=== PATIENT | female | born 1985 | race Caucasian/White ===

== ENCOUNTER 2017-09-21 14:47 | Observation (INO) ==
[2017-09-21] MEDS ORDERED: Lactated Ringers-OB Dept 1,000 ML PRIMARY IV SCH (16:30)
[2017-09-21 16:39] LABS: Hematocrit [HCT] 40.4 % (37.0-47.0); Hemoglobin [HGB] 13.3 g/dL (12.0-16.0); MEAN CORPUSCULAR HEMOGLOBIN 29.9 PG (27-31); MEAN CORPUSCULAR HGB CONC 32.9 g/dL (33-37); MEAN CORPUSCULAR VOLUME 90.8 FL (81-99); MEAN PLATELET VOLUME 10.4 FL (7.4-12.2); RED BLOOD COUNT 4.45 10^6/uL (4.20-5.40)
[2017-09-21 16:56] LABS: BLOOD UREA NITROGEN 8 mg/dL (7-22); SERUM ALBUMIN 3.6 g/dL (3.5-4.8); Uric Acid 4.3 mg/dl (2.5-6.2)
[2017-09-21] MEDS ORDERED: OMEPRAZOLE 20 MG CAPSULE PO ONE (17:12)
[2017-09-21] MEDS ORDERED: FAMOTIDINE 20 MG/2 ML VIAL IVP PRN ×2 (17:33)
[2017-09-21] MEDS ORDERED: ONDANSETRON 4 MG/2 ML VIAL IVP PRN (17:33)
[2017-09-21] MEDS ORDERED: fentaNYL Inj 100 MCG/2 ML VIAL IV PRN (17:33)
[2017-09-21] MEDS ORDERED: LIDOCAINE HCL 2 % 10 ML JELLY URO-JECT TOPICAL PRN (17:33)
[2017-09-21] MEDS ORDERED: Metoclopramide Inj 10 MG/2 ML VIAL IV PRN (17:33)
[2017-09-21] MEDS ORDERED: diphenhydrAMINE 50 MG/1 ML VIAL IVP PRN (17:33)
[2017-09-21] MEDS ORDERED: TERBUTALINE SULFATE 1 MG/1 ML SDV SUBCUT PRN (17:33)
[2017-09-21] MEDS ORDERED: Nalbuphine Inj 20 MG/ML Ampule IVP PRN (17:33)
[2017-09-21] MEDS ORDERED: CefOXitin Inj 2 GM in Sodium Chloride 0.9% 100 ML IV PRN (17:33)
[2017-09-21] MEDS ORDERED: CITRIC ACID/SODIUM CITRATE 30 ML CUP PO PRN (17:33)
[2017-09-21] MEDS ORDERED: Carboprost Inj 250 MCG/ML AMP IM PRN (17:33)
[2017-09-21] MEDS ORDERED: LIDOCAINE W/ SODIUM BICARB 0.5 ML SYR SUBD PRN (17:33)
[2017-09-21] MEDS ORDERED: OXYTOCIN 10 UNIT/1 ML IM PRN (17:33)
[2017-09-21] MEDS ORDERED: Lidocaine 1% 10 MG/ML - 20 ML VIAL SUBCUT PRN (17:33)
[2017-09-21] MEDS ORDERED: Phenylephrine Inj 50 MCG in Normal Saline Flush 0.5 ML IVP PRN (17:33)
[2017-09-21] MEDS ORDERED: METHYLERGONOVINE MALEATE 0.2 MG/1 ML VIAL IM PRN (17:33)
[2017-09-21] MEDS ORDERED: BUTORPHANOL TARTRATE 2 MG/1 ML VIAL IVP PRN (17:33)
[2017-09-21] MEDS ORDERED: Naloxone Inj 0.01 MG in Normal Saline Flush 1 ML IVP PRN (17:33)
[2017-09-21] MEDS ORDERED: ePHEDrine Inj 5 MG in Normal Saline Flush 1 ML IVP PRN (17:33)
[2017-09-21] MEDS ORDERED: NALOXONE 0.4 MG/1 ML VIAL IVP PRN (17:33)
[2017-09-21] MEDS ORDERED: MISOPROSTOL 200 MCG TABLET RECTAL PRN (17:33)
[2017-09-21] MEDS ORDERED: CALCIUM CARBONATE 500 MG (TUMS) CHEWABLE TABLET PO PRN (17:33)
[2017-09-21] MEDS ORDERED: Oxytocin 20 Units + LR 20 UNIT/1,000 ML BAG IV SCH (17:45)
--- NOTE | 2017-09-21 18:09 | OB.PROGRES ---
Interval History: 32 yo at 36 2/7 weeks gestation who was seen in clinic today for routine followup. She had had some irregular contractions over the last few days, but timed her contractions as q5 minutes in clinic and was sent to L&D for monitoring. She has continued to contract q2-5 minutes since presentation to L& D and notes increasing discomfort. GBS was collected in clinic, cephalic on bedside u/s. OBHx - 01/08/12 delivered vaginally at 35 5/7 weeks gestation in [place] with Dr. Rucker - 6lb7oz male. Mediolateral episiotomy, he did require assisted ventilations and O2 for a short time and required bili lights. complicated by threatened labor at 33 weeks, spent a week in the hospital on Mag then went home on procardia. PPROM'd at 35 weeks. She received IM progesterone weekly this . Had an abnormal 1 hour OGTT but normal 3 hour. Anatomy scan notable for choroid plexus cyst and low laying placenta, repeat showed resolution of both. [employer] hx: menarche 11 yo, regular menses, usually lasts approx 3-6 days No h/o STIs. Negative pap in April PMH: chronic HAs. GERD PSH: appy, T&A, Lt and R knee arthroscopy, hernia repair FH: Mo - HTN, prediabetes; Father - HLD SH: , never smoker, no etoh or illicit drug use. 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 Objective - Cervical Exam Cervical Exam: 3-4 outer os 2-3 inner os/60/-1 per RN [place]: q2-4 mins Heart Rate: baseline 130, mod variability, +accels, -decels Heart Rate Interpretation Category: Category I - Labs CBC and BMP: 09/21/17 15:10 09/21/17 15:10 - Vital Signs Last Taken Vital Signs: Vital Signs - Last Taken Temperature 98.4 F 09/21/17 15:33 Pulse Rate 96 09/21/17 15:33 Respiratory Rate 16 09/21/17 15:33 Blood Pressure 132/85 09/21/17 15:33 Pulse Ox 98 09/21/17 15:33 Assessment and Plan - Patient Problems (1) labor Current Visit: Yes Status: Acute Code(s): O60.00 - labor without delivery, unspecified trimester Support Text: 32 yo at 36 2/7 weeks gestation with regular contractions. -Admit with expectant management -GBS collected, pending. Given <37 weeks will start PCN G. -Will want an epidural -Rh positive
[2017-09-21] MEDS ORDERED: diphenhydrAMINE 25 MG CAPSULE PO PRN (20:54)
[2017-09-21] MEDS ORDERED: Zolpidem Tab 5 MG TAB PO PRN (20:56)
[2017-09-21] MEDS: Lactated Ringers-OB Dept 1,000 ML PRIMARY IV SCH (22:32)
--- NOTE | 2017-09-22 07:55 | OB.PROGRES ---
Interval History: Patient is tired, states she didn't sleep much overnight. Contractions slowed overnight but has had some more painful contractions this morning. Hungry. Denies EUBANKS, [place], RUQ pain. Objective - Cervical Exam Cervical Exam: unchanged overnight [place]: q4-8 mins Heart Rate: baseline 130, moderate variability, accels, no decels Heart Rate Interpretation Category: Category I - Labs CBC and BMP: 09/21/17 15:10 09/21/17 15:10 - Vital Signs Last Taken Vital Signs: Vital Signs - Last Taken Temperature 98.1 F 09/22/17 06:45 Pulse Rate 80 09/22/17 07:00 Respiratory Rate 17 09/22/17 06:45 Blood Pressure 117/74 09/22/17 06:45 Pulse Ox 98 09/22/17 07:00 Assessment and Plan - Patient Problems (1) labor Status: Acute Code(s): O60.00 - labor without delivery, unspecified trimester Support Text: 32 yo at 36 3/7 weeks gestation admitted last night thought to be in labor given regular, painful contractions. She ended up spacing out her contractions and has not had any cervical change. We discussed options of staying for continued monitoring vs going to [facility] across the street vs going home in [place] to get some rest. Patient would like to go home to be more comfortable. We also discussed proceeding with IM mariana to help with lung maturity. We did not give it yesterday thinking that delivery was imminent. At this point though, she may continue in latent labor long enough that the celestone would be helpful. Will give this morning, let her eat breakfast and likely d/c to home unless something changes. Patient to return tomorrow morning for NST, second celestone injection. Strict return precautions discussed, including signs of labor, signs of preeclampsia. Addendum - After breakfast patient decided she wasn't comfortable going home so decision made to continue monitoring through the day. Contractions slowed and by early afternoon patient decided she was most comfortable with return to home in [place]. F/u tomorrow for celestone injection, NST and KASIE.
[2017-09-22] MEDS ORDERED: BETAMET ACET/BETAMET NA PH 6 MG/1 ML - 5 ML IM SCH (08:00)
[2017-09-22] MEDS: Lactated Ringers-OB Dept 1,000 ML PRIMARY IV SCH (09:57)
[2017-09-22 12:49] VITALS: O2SAT 97
[2017-09-22 12:55] VITALS: BP 114/72; RESP 18; TEMP 97.9
== END 2017-09-22 13:45 | disposition home or self-care (01) ==
LOC: MOB LAB 14:47 → OBIP 14:47 → MERGE 17:00 → UNMERGE 17:00 → OBIP 17:44 → UNDODISIN 09-22 13:45
PROVIDERS: ADMIT Student in an Organized Health Care Education/Training Program; ATTEND Student in an Organized Health Care Education/Training Program

== ENCOUNTER 2017-10-11 13:19 | Inpatient (IN) ==
[2017-10-11] MEDS ORDERED: CITRIC ACID/SODIUM CITRATE 30 ML CUP PO PRN (15:52)
[2017-10-11] MEDS ORDERED: OXYTOCIN 10 UNIT/1 ML IM PRN (15:52)
[2017-10-11] MEDS ORDERED: FAMOTIDINE 20 MG/2 ML VIAL IVP PRN ×2 (15:52)
[2017-10-11] MEDS ORDERED: Carboprost Inj 250 MCG/ML AMP IM PRN (15:52)
[2017-10-11] MEDS ORDERED: METHYLERGONOVINE MALEATE 0.2 MG/1 ML VIAL IM PRN (15:52)
[2017-10-11] MEDS ORDERED: fentaNYL Inj 100 MCG/2 ML VIAL IV PRN (15:52)
[2017-10-11] MEDS ORDERED: CefOXitin Inj 2 GM in Sodium Chloride 0.9% 100 ML IV PRN (15:52)
[2017-10-11] MEDS ORDERED: ONDANSETRON 4 MG/2 ML VIAL IVP PRN (15:52)
[2017-10-11] MEDS ORDERED: NALOXONE 0.4 MG/1 ML VIAL IVP PRN (15:52)
[2017-10-11] MEDS ORDERED: CALCIUM CARBONATE 500 MG (TUMS) CHEWABLE TABLET PO PRN (15:52)
[2017-10-11] MEDS ORDERED: Lidocaine 1% 10 MG/ML - 20 ML VIAL SUBCUT PRN (15:52)
[2017-10-11] MEDS ORDERED: LIDOCAINE W/ SODIUM BICARB 0.5 ML SYR SUBD PRN (15:52)
[2017-10-11] MEDS ORDERED: MISOPROSTOL 200 MCG TABLET RECTAL PRN (15:52)
[2017-10-11] MEDS ORDERED: Zolpidem Tab 5 MG TAB PO PRN (15:52)
[2017-10-11] MEDS ORDERED: diphenhydrAMINE 50 MG/1 ML VIAL IVP PRN (15:52)
[2017-10-11] MEDS ORDERED: ePHEDrine Inj 5 MG in Normal Saline Flush 1 ML IVP PRN (15:52)
[2017-10-11] MEDS ORDERED: BUTORPHANOL TARTRATE 2 MG/1 ML VIAL IVP PRN (15:52)
[2017-10-11] MEDS ORDERED: Misoprostol Tab 100 MCG TAB VAGINAL PRN (15:52)
[2017-10-11] MEDS ORDERED: Phenylephrine Inj 50 MCG in Normal Saline Flush 0.5 ML IVP PRN (15:52)
[2017-10-11] MEDS ORDERED: Nalbuphine Inj 20 MG/ML Ampule IVP PRN (15:52)
[2017-10-11] MEDS ORDERED: TERBUTALINE SULFATE 1 MG/1 ML SDV SUBCUT PRN (15:52)
[2017-10-11] MEDS ORDERED: Naloxone Inj 0.01 MG in Normal Saline Flush 1 ML IVP PRN (15:52)
[2017-10-11] MEDS ORDERED: LIDOCAINE HCL 2 % 10 ML JELLY URO-JECT TOPICAL PRN (15:52)
[2017-10-11] MEDS ORDERED: Metoclopramide Inj 10 MG/2 ML VIAL IV PRN (15:52)
[2017-10-11] MEDS ORDERED: Oxytocin 20 Units + LR 20 UNIT/1,000 ML BAG IV SCH ×2 (16:00)
[2017-10-11 16:17] LABS: Hematocrit [HCT] 39.7 % (37.0-47.0); Hemoglobin [HGB] 13.5 g/dL (12.0-16.0); MEAN CORPUSCULAR HEMOGLOBIN 30.3 PG (27-31); MEAN CORPUSCULAR VOLUME 89.2 FL (81-99); MEAN PLATELET VOLUME 10.6 FL (7.4-12.2); RED BLOOD COUNT 4.45 10^6/uL (4.20-5.40)
[2017-10-11] MEDS: Lactated Ringers-OB Dept 1,000 ML PRIMARY IV SCH ×2 (16:39→23:34)
[2017-10-11] MEDS ORDERED: ACETAMINOPHEN 500 MG TABLET PO PRN (19:08)
[2017-10-11] MEDS ORDERED: ePHEDrine Inj 50 MG/ML AMP ONE (22:24)
[2017-10-11] MEDS ORDERED: Fent/Bupiv 2mcg/0.0625% Epid 250 ML ONE (22:36)
--- NOTE | 2017-10-11 23:07 | CRNA.PROGR ---
Anesthesia Time - - Start date: 10/11/17 - Procedure/Recovery Time Anesthesia : Time In: 10:40 - Other Weight: 90.718 kg Height: 5 ft 4 in Body Mass Index (BMI): 34.3 Physical Status: P2 Anesthesia Type: Epidural Obstetrics: Planned vaginal delivery w/ neuraxial labor anesthesia/analog
--- NOTE | 2017-10-11 23:08 | CRNA.PROCE ---
Central Neuraxis Block Placemt - - Safety Measures: Time Out Taken - - Type of Block: Epidural Reason for Block: Analgesia Moniters Used During Block: SPO2, NIBP Positioning: Sitting Skin Prep Used: ChloroPrep Draped: Yes Skin Infiltration - Enter Amount Used in Comment Field: 1% Xylocaine (mL): Yes ( skin wheal) Spinal Needle Used: 18 Hustead 80 mm Local Anesthetic - Enter Amount Used in Comment Field: 1.5 % Xylocaine with Epinephrine 1:200,000 (mL): Yes (5ml test dose) Number of Centimeters Catheter Threaded: 4 Bioclusive Dressing Applied: Yes Anesthesia Time - Other Weight: 90.718 kg Height: 5 ft 4 in Body Mass Index (BMI): 34.3
[2017-10-11] MEDS ORDERED: fentaNYL 2 MCG/BUPIVACAINE 0.0625%/NS 0.9% 250 ML BAG EPIDURAL SCH (23:15)
[2017-10-12] MEDS ORDERED: OMEPRAZOLE 20 MG CAPSULE PO ONE (06:49)
--- NOTE | 2017-10-12 06:53 | OB.PROGRES ---
Interval History: 32 yo at 39 2/7 weeks gestation by first trimester u/s admitted yesterday afternoon for elective IOL. She was observed overnight at 36 weeks gestation as she contracted regularly and was thought to be in active labor. She did receive a course of steroids, but ended up being discharged as her cervix never changed. She has continued to contract intermittently since that time. OBHx - 01/08/12 delivered vaginally at 35 5/7 weeks gestation in [place] with Dr. Rucker - 6lb7oz male. Mediolateral episiotomy, he did require assisted ventilations and O2 for a short time and required phototherapy. complicated by threatened labor at 33 weeks, spent a week in the hospital on Mag then went home on procardia. PPROM'd at 35 weeks. She received IM progesterone weekly this . Had an abnormal 1 hour OGTT but normal 3 hour. Anatomy scan notable for choroid plexus cyst and low laying placenta, repeat showed resolution of both. Overnight observation for regular contractions, received steroids at 36 weeks. [employer] hx: menarche 11 yo, regular menses, usually lasts approx 3-6 days No h/o STIs. Negative pap in April PMH: chronic HAs. GERD PSH: appy, T&A, Lt and R knee arthroscopy, hernia repair FH: Mo - HTN, prediabetes; Father - HLD SH: , never smoker, no etoh or illicit drug use. 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 Objective - Cervical Exam Cervical Exam: 4-5/60/-3 per RN, head was not palpable [place]: q2-5 mins Heart Rate: baseline 130, moderate variability, accels, no decels Heart Rate Interpretation Category: Category I - Labs CBC and BMP: 10/11/17 15:30 - Vital Signs Last Taken Vital Signs: Vital Signs - Last Taken Temperature 98.1 F 10/12/17 04:45 Pulse Rate 79 10/12/17 06:15 Respiratory Rate 16 10/12/17 06:00 Blood Pressure 128/78 10/12/17 06:15 Pulse Ox 96 10/12/17 06:15 - Additional Details Additional Details: u/s - KASIE 15.3, vertex but to the R a bit Assessment and Plan - Patient Problems (1) Encounter for induction of labor Current Visit: Yes Status: Acute Code(s): Z34.90 - Encounter for supervision of normal , unspecified, unspecified trimester Support Text: 32 yo at 39 2/7 weeks gestation admitted for elective IOL. She was on pitocin 4MU through the night. At 530/545 when patient was checked, the head was no longer palpable, had been ballotable since arrival. U/s showed the infant was still vertex, head was off to the R a bit, KASIE 15.3. Pitocin was turned off. With the OR crew present and FRANCI Vogt present, I consented the patient for AROM. Dr. Schroeder was able to hold the head down while I AROM'd clear fluid. The Head did engage but was still quite high. GBS negative Continue close observation
--- NOTE | 2017-10-12 07:10 | DI ---
LIMITED OBSTETRICAL ULTRASOUND FOR LIE AND KASIE, 10/12/2017 5:54 AM: Clinical History: Unknown lie. Previous Exam: 09/24/2015. EDC Based On Early OB Ultrasound: 10/16/2017. Scans are obtained in all four quadrants for an amnionic fluid index measurement. The KASIE is 15.3 cm. The heart rate is 140 beats per minute. The fetus is in vertex presentation. The placenta is f undus and grade 1. Readin. Amnionic fluid index is 15.3 cm. 2. The fetus is in vertex presentation.
[2017-10-12] MEDS: Lactated Ringers-OB Dept 1,000 ML PRIMARY IV SCH ×2 (11:17→19:04)
--- NOTE | 2017-10-12 16:27 | OB.DEL.SUM ---
Delivery Note Delivery Summary: 32 yo G2 now P2 was admitted yesterday afternoon for elective IOL. Pt with a h/ o labor, completed IM pregesterone through 36 weeks gestation. She had threatened labor at 36 weeks with regular contractions, was given steroids, observed overnight and ultimately never made cervical change. She has continued to contract intermittently. Upon arrival her cervix was 3/60/-2, she was started on pitocin for induction. Upon arrival the head was not well engaged, quite ballotable. Early this morning the nurses could no longer palpate the head. U/s revealed that baby was still vertex, just off to the patient's R. With the OR crew available, I AROM'd the patient while Dr. Schroeder held the 's head lower in the pelvis. The patient then progressed to complete with pitocin augmentation. She did have an epidural for pain control. She delivered a TAGA female via normal vaginal delivery in TIFFANIE position. The head restituted to LOT. The anterior shoulder delivery was delayed approximately 30 seconds and did require Cintia. The posterior shoulder then delivered with a compound hand. was placed on mom's abdomen. Cord clamping was delayed approx 30-45 seconds, it was then doubly clamped and cut by the RN. Her placenta delivered spontaneously, intact, with 3- vessel cord approx 15 minutes later. The vagina and cervix were inspected and she was noted to have a 2nd degree perineal laceration that was repaired with 3- 0 vicryl rapide in standard fashion. EBL was 400 cc. Mom and baby tolerated delivery well. Apgars 9,9. - Patient Problems (1) Encounter for induction of labor Status: Acute Code(s): Z34.90 - Encounter for supervision of normal , unspecified, unspecified trimester
[2017-10-12] MEDS ORDERED: LIDOCAINE HCL 2 % 10 ML JELLY URO-JECT TOPICAL PRN (16:54)
[2017-10-12] MEDS ORDERED: diphenhydrAMINE 25 MG CAPSULE PO PRN (16:54)
[2017-10-12] MEDS ORDERED: Nalbuphine Inj 20 MG/ML Ampule IVP PRN (16:54)
[2017-10-12] MEDS ORDERED: HYDROcodone-APAP 5 MG -325 MG TABLET PO PRN (16:54)
[2017-10-12] MEDS ORDERED: Ondansetron ODT Tab 4 MG TAB PO PRN (16:54)
[2017-10-12] MEDS ORDERED: CALCIUM CARBONATE 500 MG (TUMS) CHEWABLE TABLET PO PRN (16:54)
[2017-10-12] MEDS ORDERED: GLYCERIN/WITCH HAZEL 1 BOX TOPICAL PRN (16:54)
[2017-10-12] MEDS ORDERED: ACETAMINOPHEN 325 MG TABLET PO PRN (16:54)
[2017-10-12] MEDS ORDERED: ONDANSETRON 4 MG/2 ML VIAL IVP PRN (16:54)
[2017-10-12] MEDS ORDERED: BENZOCAINE/MENTHOL SPRAY 56 GM BOTTLE TOPICAL PRN (16:54)
[2017-10-12] MEDS ORDERED: LANOLIN HPA 40 GM TUBE TOPICAL PRN (16:54)
[2017-10-12] MEDS ORDERED: Oxytocin 20 Units + LR 20 UNIT/1,000 ML BAG IV SCH (16:54)
[2017-10-12] MEDS ORDERED: diphenhydrAMINE 50 MG/1 ML VIAL IVP PRN (16:54)
[2017-10-12] MEDS: IBUPROFEN 800 MG TABLET PO PRN (21:31)
[2017-10-12] MEDS: DOCUSATE 100 MG CAPSULE PO SCH (21:32)
[2017-10-13] MEDS: D5-LR 1,000 ML PRIMARY IV SCH ×2 (00:04→15:30)
[2017-10-13 05:26] LABS: Hematocrit [HCT] 32.5 % (37.0-47.0); Hemoglobin [HGB] 10.2 g/dL (12.0-16.0); MEAN CORPUSCULAR HEMOGLOBIN 28.8 PG (27-31); MEAN CORPUSCULAR HGB CONC 31.4 g/dL (33-37); MEAN CORPUSCULAR VOLUME 91.8 FL (81-99); MEAN PLATELET VOLUME 10.9 FL (7.4-12.2); RED BLOOD COUNT 3.54 10^6/uL (4.20-5.40)
[2017-10-13] MEDS ORDERED: CITRIC ACID/SODIUM CITRATE 30 ML CUP PO ONE (06:04)
[2017-10-13] MEDS ORDERED: FAMOTIDINE 20 MG/2 ML VIAL IVP ONE (06:04)
[2017-10-13] MEDS ORDERED: Metoclopramide Inj 10 MG/2 ML VIAL IVP ONE (06:04)
[2017-10-13] MEDS ORDERED: MIDAZOLAM 5 MG/1 ML ONE (07:21)
[2017-10-13] MEDS ORDERED: LIDOCAINE MPF 2% - 5 ML (20 MG/1 ML) ONE (07:21)
[2017-10-13] MEDS ORDERED: KETAMINE 100 MG/1 ML - 5 ML ONE (07:21)
[2017-10-13] MEDS ORDERED: fentaNYL Inj 100 MCG/2 ML VIAL ONE (07:21)
[2017-10-13] MEDS ORDERED: Sodium Chloride 0.9% vial 10 ML ONE (07:21)
[2017-10-13] MEDS ORDERED: DEXAMETHASONE PF 10 MG/1 ML VIAL ONE (07:22)
[2017-10-13] MEDS ORDERED: PROPOFOL 10 MG/1 ML (200 MG/20 ML) VIAL IV ONE (07:23)
[2017-10-13] MEDS: Lactated Ringers 1,000 ML PRIMARY IV SCH ×2 (07:25→15:30)
[2017-10-13] MEDS ORDERED: BUPIVACAINE 0.25% W/ EPI - 10 ML VIAL ONE (07:39)
--- NOTE | 2017-10-13 07:46 | CRNA.PROGR ---
Anesthesia Time - - Start date: 10/13/17 End date: 10/13/17 - Procedure/Recovery Time Anesthesia : Time In: 07:53 Anesthesia : Time Out: 08:49 Anesthesia : Total Time: 56 - Total Anesthesia Time Total Anesthesia Time (minutes): 56 - Other Weight: 90.718 kg Height: 5 ft 4 in Body Mass Index (BMI): 34.3 Physical Status: P2 Anesthesia Type: General Anesthesia : ET
[2017-10-13] MEDS ORDERED: ATROPINE SULFATE 0.4 MG/1 ML VIAL IVP PRN (07:47)
[2017-10-13] MEDS ORDERED: fentaNYL Inj 100 MCG/2 ML VIAL IVP PRN (07:47)
[2017-10-13] MEDS ORDERED: ONDANSETRON 4 MG/2 ML VIAL IVP PRN (07:47)
[2017-10-13] MEDS ORDERED: LIDOCAINE W/ SODIUM BICARB 0.5 ML SYR SUBD PRN (07:47)
[2017-10-13] MEDS ORDERED: HYDROmorphone 2 MG/1 ML IVP PRN (07:47)
--- NOTE | 2017-10-13 07:47 | CRNA.PROGR ---
Anesthesia Recovery Phase I - Post Anesthesia Evaluation Patient's Condition on Arrival in Phase I: Stable Patient's Condition on Arrival in Phase II: Stable Pain Level: 4 (medicated-resolved)
[2017-10-13] MEDS ORDERED: Lactated Ringers 1,000 ML PRIMARY IV SCH (08:00)
[2017-10-13] MEDS ORDERED: KETOROLAC 30 MG/1 ML VIAL ONE (08:21)
--- NOTE | 2017-10-13 08:36 | OB.OP.NOTE ---
Operative Report Surgeon: Ilia Car Checker: Irvin Gonzalez MD Anesthesia Type: General Anesthesia Provider: Mone Kumar CRNA Surgery Date: 10/13/17 Preoperative Diagnosis: Desires Permanent Sterilization Postoperative Diagnosis: Same Procedure: PPTL via Bilateral Salpingectomy Estimated Blood Loss (mL): 0 Fluids: 800 ml Complications: None Findings at Surgery: Normal appearing tubes and ovaries. Indications for the Procedure: Desires PPTL Description of Procedure: The patient was taken to the operating room and placed supine where general endotracheal anesthesia was administered. She was prepped and draped in the normal sterile fashion. Quarter percent Marcaine with epinephrine was injected in the infraumbilical area. A transverse infraumbilical incision was then made approximately 2 inches in length. Subcutaneous tissue and fascia were divided with Bovie cautery and the peritoneal cavity was entered with Bovie cautery. An Lenny retractor was then placed. A moistened laparotomy sponge was placed in the abdomen and the patient was placed in Trendelenburg position. The right tubal corneum was identified and grasped with a Leigh clamp. The tube was followed to its fimbriated end. Salpingectomy was then performed using a gyrus PK bipolar cautery device with good hemostasis noted. The left fallopian tube was then identified in a similar fashion and followed to its fimbriated end. Salpingectomy was then performed on this tube again using the gyrus PK bipolar grasper. Good hemostasis was noted on both surgical sites. The Lenny retractor was then removed. The fascia was closed with a running 0 Vicryl suture. The subcutaneous space was reapproximated with a running 3-0 Monocryl suture. The skin was then closed with Dermabond. The wound was properly dress. There were no complications at surgery. The patient left to recovery in good condition. Plan: Routine postoperative care.
[2017-10-13] MEDS ORDERED: Prenatal Multivitamin Tab 1 TAB TAB PO SCH (09:00)
[2017-10-13] MEDS: DOCUSATE 100 MG CAPSULE PO SCH (11:54)
[2017-10-13] MEDS: IBUPROFEN 800 MG TABLET PO PRN (11:54)
[2017-10-13 15:23] VITALS: BP 110/64; RESP 18; TEMP 97.9; O2SAT 96
--- NOTE | 2017-10-14 08:55 | DCSUMMARY ---
Hospitalization Summary Admit Date: 10/11/17 Discharge Date: 10/13/17 Primary Diagnosis:: s/p Secondary Diagnosis:: S/p bilateral tubal ligation/salpingectomy Primary Surgery and Date: PP tubal ligation/salpingectomy Other Surgery and Date: 10/13/17 Delivery Type: Vaginal Hospital Course: 32 yo G2 now P2 admitted on 10/11/17 for elective IOL at 39 1/7 weeks gestation. on 10/12/17 she delivered a TAGA female infant via , apgars 9,9. Delivery complicated by a shoulder dystocia that resolved quickly with eliazar. She had a 2nd degree perineal laceration that was repaired in standard fashion. On PPD 1 she underwent a tubal ligation/b/l salpingectomy. Patient recovered well and was discharged home on PPD 1. / Postop Complications: none apparent [place] Complications: none apparent Exam - Vitals Vital Signs: Vital Signs Temperature 97.9 F Temperature Source Oral Pulse Rate [Pulse Oximeter] 68 Pulse Rate 65 Respiratory Rate 18 Blood Pressure [Right Arm] 110/64 Blood Pressure 119/68 Pulse Ox 96 Oxygen Flow Rate 4 L by NC Oxygen Delivery Method Room Air Height 5 ft 4 in Weight 200 lb - General General Appearance: No Acute Distress, Cooperative - Head Head Exam: Normal Inspection - Eye Eye Exam: POSITIVE: Normal Appearance - ENT ENT Exam: POSITIVE: Normal Exam - Neck Neck Exam: Normal Inspection - Respiratory Respiratory Exam: POSITIVE: Clear to Auscultation - Bilaterally, Breathing Non Labored - Cardiovascular Cardiovascular Exam: POSITIVE: RRR - GI/Abdominal GI/Abdominal Exam: POSITIVE: Normal Bowel Sounds Additional GI/Abdominal Exam Details: Uterus firm -1 - Extremities Extremities Exam: POSITIVE: Negative Rajani's sign, +1 Edema. NEGATIVE: Calf Tenderness - Neurological Neurological Exam: POSITIVE: Alert, Oriented x 3 - Psychiatric Psychiatric Exam: POSITIVE: Normal Affect, Normal Mood Patient Problems - Patient Problem List (1) Encounter for induction of labor Status: Acute Code(s): Z34.90 - Encounter for supervision of normal , unspecified, unspecified trimester Support Text: 32 yo G2 now P2, PPD1 s/p , pp tubal ligation D/c to home with hydrocodone 5/325, ibuprofen 800 mg, colace F/u with me in 6 weeks, sooner for any concerns Category: Medical
== END 2017-10-13 16:26 | disposition home or self-care (01) | DRG 767 ==
LOC: OBIP 15:07
PROVIDERS: ADMIT Student in an Organized Health Care Education/Training Program; ATTEND Student in an Organized Health Care Education/Training Program